=== PATIENT | female | born 1985 | race African-American/Black ===

== ENCOUNTER 2018-04-09 18:54 | Emergency (ER) | payer OTHER ==
[~2018-04-09] VITALS: Ht 162.6 cm; Wt 104.3 kg
[~2018-04-09 18:54] MED LIST: DIFLUCAN150 M1 PO; GREEN TEA250 MG PO; HYDROCODONE-AP1 EAC6 PO; MICROGESTIN1 EACH PO; NORCO 5-325 TA1 EACH PO; ONDANSETRON HCL4 M2 PO; PRILOSEC20 MG PO; TRINATE TABLET1 TAB; ZOFRAN4 MG PO
[2018-04-09] MEDS ORDERED: BIRTH CONTROL (19:12)
[2018-04-09] MEDS ORDERED: IMODIUM A-D2 M1 PO (19:12)
[2018-04-09] MEDS ORDERED: IBUPROFEN 800800 M1 PO (19:13)
[2018-04-09 19:31] LABS: ABSOLUTE NEUTROPHILS 1.9 thou/uL (1.4-8.2); BASOPHILS 1.1 % (0.0-2.0); EOSINOPHILS 1.2 % (0.0-3.0); HEMOGLOBIN 12.7 gm/dL (12.0-15.0); LYMPHOCYTES 45.2 % (24.0-44.0); MCH 29.9 pg (26.0-34.0); MCHC 33.5 g/dL (28.0-37.0); MCV 89.1 fL (80.0-100.0); MONOCYTES 8.6 % (1.0-8.0); PLATELET COUNT 311 thou/uL (150-400); POLYS 43.9 % (36.0-66.0); RBC 4.26 mil/uL (4.20-5.00); RDW 14.2 % (10.5-14.5); WBC 4.4 thou/uL (4.0-11.0)
[2018-04-09 19:31] LABS: ICTOTEST (BILI CONFIRMATORY) Negative (Negative); URINE BILIRUBIN NEGATIVE (Negative); URINE CLARITY CLEAR; URINE COLOR YELLOW; URINE GLUCOSE-RANDOM* NEGATIVE (Negative); URINE KETONES 1+ (Negative); URINE PROTEIN (DIPSTICK) TRACE (Negative); URINE SPECIFIC GRAVITY 1.025 (1.005-1.035)
[2018-04-09 19:32] LABS: URINE BLOOD NEGATIVE (Negative); URINE LEUKOCYTES-REFLEX NEGATIVE (Negative); URINE NITRITE-REFLEX NEGATIVE (Negative); URINE UROBILINOGEN 0.2 E.U./dl (0.2-1.0)
[2018-04-09 19:38] LABS: CALCIUM 8.7 mg/dL (8.5-10.1); POTASSIUM 3.2 mmol/L (3.5-5.1)
[2018-04-09 19:44] LABS: ALBUMIN 3.2 g/dL (3.4-5.0); TOTAL BILIRUBIN 0.2 mg/dL (<0.1-1.0); TOTAL PROTEIN 8.1 g/dL (6.4-8.2)
[2018-04-09] MEDS ORDERED: PHENERGAN 25 MG25 M1 PO (20:00)
[2018-04-09 20:04] VITALS: BP 155/99
== END 2018-04-09 20:13 | disposition home or self-care (01) ==
LOC: ER 18:54
PROVIDERS: Physician Assistant
DX: R11.0 Nausea (principal); T36.0X5A Adverse effect of penicillins, initial encounter; Z98.890 Other specified postprocedural states; Z88.2 Allergy status to sulfonamides; Y92.89 Other specified places as the place of occurrence of the external cause